=== PATIENT | female | born 1975 | race Caucasian/White ===

== ENCOUNTER 2017-10-27 15:20 | Emergency (ER) | payer MEDICAID, OTHER ==
[2017-10-27] MEDS: KETOROLAC 30 MG INJ IM (18:45)
[2017-10-27 19:04] LABS: URINE BLOOD (Dip) POC Negative (NEGATIVE); URINE GLUCOSE (Dip) POC Negative (NEGATIVE); URINE KETONES (Dip) POC Negative (NEGATIVE); URINE LEUKOCYTE EST (Dip) POC Negative (NEGATIVE); URINE NITRITE (Dip) POC Negative (NEGATIVE); URINE TOTAL PROTEIN POC Negative (NEGATIVE)
[2017-10-27 19:04] LABS: URINE PH (Dip) POC 7.5 (5.0-8.5)
== END 2017-10-27 19:26 | disposition home or self-care (01) ==
LOC: FTE 15:20
DX: M54.5 Low back pain (principal)
CPT/HCPCS: 81003; 96372; 99284-25